=== PATIENT | female | born 1970 ===

== ENCOUNTER 2019-03-05 20:36 | Observation (INO) | payer OTHER ==
--- NOTE | 2019-03-05 20:47 | Emergency Department Report ---
ED Chest Pain HPI - General Chief Complaint: Chest Pain Stated Complaint: CHEST PAIN Time Seen by Provider: 03/05/19 20:36 Source: patient, EMS Mode of arrival: Stretcher Limitations: No Limitations - History of Present Illness Initial Comments: She is a 48-year-old female Emergency room for chest pain. Patient brought in by EMS. Patient states one hour ago she developed chest pain in the center chest radiating to her left shoulder. Patient states that the chest pain was a 10 out of 10 but is now a 0 out of 10 since being given aspirin and nitro glycerin by EMS. Patient states the chest pain was a stabbing pain. Patient states one month ago she had an N STEMI where she was seen at [place]. MD Complaint: chest pain -: Sudden Onset: during rest Pain Location: substernal, left chest Pain Radiation: LUE Severity: severe Severity scale (0 -10): 10 Consistency: now resolved Improves With: nitroglycerin Worsens With: exertion re: denies: nausea, vomting, diaphoresis, dyspnea, sense of impending doom Other Symptoms: denies: cough, fever, syncope, rash, acid taste in mouth, leg swelling, palpitations, burping Treatments Prior to Arrival: aspirin, nitroglycerin Aspirin use within the Past 7 Days: (1) Yes - Related Data On Oral Contraceptives: No Home Medications Medication Instructions Recorded Confirmed Last Taken Aspirin [Adult Aspirin] 81 mg PO DAILY 03/05/19 03/05/19 Unknown AtorvaSTATin [Lipitor] 20 mg PO DAILY 03/05/19 03/05/19 Unknown Carvedilol 25 mg PO BID 03/05/19 03/05/19 Unknown Prozac 20 mg PO DAILY 03/05/19 03/05/19 Unknown Valsartan [Diovan] 320 mg PO DAILY 03/05/19 03/05/19 Unknown hydroCHLOROthiazide [HCTZ] 25 mg PO DAILY 03/05/19 03/05/19 Unknown Allergies Allergy/AdvReac Type Severity Reaction Status Date / Time amlodipine [From Norvasc] AdvReac Headache Verified 03/05/19 20:43 Heart Score - HEART Score History: Highly suspicious EKG: Significant ST-depression Age: 45-65 Risk factors: > 3 risk factors or hx of atherosclerotic disease Troponin: < normal limit HEART Score: 7 ED Review of Systems ROS: Stated complaint: CHEST PAIN Other details as noted in HPI Constitutional: denies: chills, fever Eyes: denies: eye pain, eye discharge, vision change ENT: denies: ear pain, throat pain Respiratory: denies: cough, shortness of breath, wheezing Cardiovascular: chest pain. denies: palpitations Endocrine: no symptoms reported Gastrointestinal: denies: abdominal pain, nausea, diarrhea Genitourinary: denies: urgency, dysuria, discharge Musculoskeletal: denies: back pain, joint swelling, arthralgia Skin: denies: rash, lesions Neurological: denies: headache, weakness, paresthesias Psychiatric: denies: anxiety, depression Hematological/Lymphatic: denies: easy bleeding, easy bruising ED Past Medical Hx - Past Medical History Previous Medical History?: Yes Hx Hypertension: Yes Hx Heart Attack/AMI: Yes - Surgical History Past Surgical History?: No - Family History Family history: no significant - Social History Smoking Status: Never Smoker Substance Use Type: None - Medications Home Medications: Home Medications Medication Instructions Recorded Confirmed Last Taken Type Aspirin [Adult Aspirin] 81 mg PO DAILY 03/05/19 03/05/19 Unknown History AtorvaSTATin [Lipitor] 20 mg PO DAILY 03/05/19 03/05/19 Unknown History Carvedilol 25 mg PO BID 03/05/19 03/05/19 Unknown History Prozac 20 mg PO DAILY 03/05/19 03/05/19 Unknown History Valsartan [Diovan] 320 mg PO DAILY 03/05/19 03/05/19 Unknown History hydroCHLOROthiazide [HCTZ] 25 mg PO DAILY 03/05/19 03/05/19 Unknown History ED Physical Exam - General Limitations: No Limitations General appearance: alert, in no apparent distress - Head Head exam: Present: atraumatic, normocephalic - Eye Eye exam: Present: normal appearance - ENT ENT exam: Present: mucous membranes moist - Neck Neck exam: Present: normal inspection - Respiratory Respiratory exam: Present: normal lung sounds bilaterally. Absent: respiratory distress - Cardiovascular Cardiovascular Exam: Present: regular rate, normal rhythm. Absent: systolic murmur, diastolic murmur, rubs, gallop - GI/Abdominal GI/Abdominal exam: Present: soft, normal bowel sounds. Absent: distended, tenderness - Rectal Rectal exam: Present: deferred - Extremities Exam Extremities exam: Present: normal inspection - Back Exam Back exam: Present: normal inspection - Neurological Exam Neurological exam: Present: alert, oriented X3 - Psychiatric Psychiatric exam: Present: normal affect, normal mood - Skin Skin exam: Present: warm, dry, intact, normal color. Absent: rash ED Course Vital Signs 03/05/19 03/05/19 03/05/19 20:44 20:46 20:50 Temperature 98.9 F Pulse Rate 87 85 80 Respiratory 16 17 Rate Blood Pressure 159/97 Blood Pressure 159/97 [Right] O2 Sat by Pulse 99 98 Oximetry 03/05/19 03/05/19 03/05/19 20:51 21:00 21:15 Temperature Pulse Rate 76 76 Respiratory 19 12 16 Rate Blood Pressure 140/90 153/95 Blood Pressure [Right] O2 Sat by Pulse 98 98 100 Oximetry 03/05/19 03/05/19 03/05/19 21:27 21:30 21:45 Temperature Pulse Rate 77 83 74 Respiratory 16 24 14 Rate Blood Pressure 145/80 137/80 Blood Pressure 146/89 [Right] O2 Sat by Pulse 100 98 100 Oximetry 03/05/19 03/05/19 03/05/19 22:01 22:15 22:30 Temperature Pulse Rate 76 75 71 Respiratory 16 12 13 Rate Blood Pressure 150/75 142/80 150/82 Blood Pressure [Right] O2 Sat by Pulse 97 100 99 Oximetry 03/05/19 03/05/19 03/05/19 22:41 22:51 23:01 Temperature Pulse Rate 77 68 71 Respiratory 12 14 17 Rate Blood Pressure 158/90 150/85 157/88 Blood Pressure [Right] O2 Sat by Pulse 98 97 98 Oximetry 03/05/19 03/05/19 03/05/19 23:11 23:16 23:21 Temperature Pulse Rate 72 77 73 Respiratory 18 18 18 Rate Blood Pressure 158/76 167/84 Blood Pressure 158/76 [Right] O2 Sat by Pulse 97 98 97 Oximetry 03/05/19 03/05/19 03/05/19 23:31 23:41 23:51 Temperature Pulse Rate 71 72 72 Respiratory 19 15 32 H Rate Blood Pressure 165/92 164/88 170/93 Blood Pressure [Right] O2 Sat by Pulse 97 97 96 Oximetry 03/06/19 00:16 Temperature 98.0 F Pulse Rate 71 Respiratory 18 Rate Blood Pressure 153/94 Blood Pressure [Right] O2 Sat by Pulse 95 Oximetry - Reevaluation(s) Reevaluation #1: Patient is still pain free. I discussed all results with patient. I discussed plan of care with patient. Patient agrees with plan of care. Patient will be admitted to the hospitalist service. 03/05/19 21:49 - Consultations Consultation #1: Dr. Hitchcock, interventional cardiology consultation for abnormal EKG. Dr. Hitchcock states this is not a STEMI and recommends admission after initial cardiac workup with troponin done 03/05/19 20:26 Consultation #2: Hospitalist consult for admission. Hospitalist admit patient. 03/05/19 21:52 JAS score - Jas Score Age > 65: (0) No Aspirin use within the Past 7 Days: (1) Yes 3 or more CAD Risk Factors: (1) Yes 2 or more Angina events in past 24 hrs: (0) No Known CAD with more than 50% Stenosis: (0) No Elevated Cardiac Markers: (0) No ST Deviation Greater than 0.5mm: (0) No JAS Score: 2 ED Medical Decision Making - Lab Data Result diagrams: 03/05/19 20:51 03/05/19 20:51 - EKG Data -: EKG Interpreted by [facility] EKG shows normal: sinus rhythm, axis, intervals, QRS complexes Rate: normal - EKG Data Interpretation: LVH, other (abnormal EKG with ST depression.) - Radiology Data Radiology results: report reviewed CHEST 1 VIEW 03/05/2019 8:50 PM INDICATION / CLINICAL INFORMATION: Chest Pain. COMPARISON: None available. FINDINGS: SUPPORT DEVICES: None. HEART / MEDIASTINUM: No significant abnormality. LUNGS / PLEURA: No significant pulmonary or pleural abnormality. No pneumothorax. ADDITIONAL FINDINGS: No significant additional findings. IMPRESSION: No significant abnormality of the chest. - Medical Decision Making Patient is a 48-year-old female that just marginal complaints of chest pain. Patient was given aspirin and nitroglycerin on her chest. Relief prior to arrival. Patient recently had an STEMI 1 month ago. Patient's EKG is abnormal. Patient's chest x-ray within normal limits. Patient's labs unremarkable. Patient admitted to the hospitalist service. Prior to arrival, cardiology was consults it and stated this was not a STEMI but recommends admission for ACS. - Differential Diagnosis ACS. Chest pain. Hypertension. Critical Care Time: Yes Critical care attestation.: If time is entered above; I have spent that time in minutes in the direct care of this critically ill patient, excluding procedure time. Critical Care Time: 35 minutes ED Disposition Clinical Impression: Chest pain Qualifiers: Chest pain type: unspecified Qualified Code(s): R07.9 - Chest pain, unspecified Hypertension Qualifiers: Hypertension type: essential hypertension Qualified Code(s): I10 - Essential (primary) hypertension UTI (urinary tract infection) Qualifiers: Urinary tract infection type: acute cystitis Hematuria presence: with hematuria Qualified Code(s): N30.01 - Acute cystitis with hematuria Disposition: OP ADMIT IP TO THIS HOSP Is pt being admited?: Yes Does the pt Need Aspirin: No Condition: Critical Time of Disposition: 21:52
[2019-03-05 21:03] LABS: Basophils % (Auto) 0.6 % (0.0-1.8); Eosinophils # (Auto) 0.2 K/mm3 (0.0-0.4); Eosinophils % (Auto) 2.1 % (0.0-4.3); Hematocrit 36.4 % (30.3-42.9); Hemoglobin 12.3 gm/dl (10.1-14.3); Lymphocytes # (Auto) 2.3 K/mm3 (1.2-5.4); Lymphocytes % (Auto) 29.7 % (13.4-35.0); Mean Corpuscular HGB Conc 34 % (30-34); Mean Corpuscular Volume 94 fl (79-97); Monocytes # (Auto) 0.7 K/mm3 (0.0-0.8); Monocytes % (Auto) 8.6 % (0.0-7.3); Platelet Count 276 K/mm3 (140-440); Red Blood Count 3.88 M/mm3 (3.65-5.03); Red Cell Distribution Width 14.4 % (13.2-15.2)
--- NOTE | 2019-03-05 21:16 | XRay Report ---
CHEST 1 VIEW 03/05/2019 8:50 PM INDICATION / CLINICAL INFORMATION: Chest Pain. COMPARISON: None available. FINDINGS: SUPPORT DEVICES: None. HEART / MEDIASTINUM: No significant abnormality. LUNGS / PLEURA: No significant pulmonary or pleural abnormality. No pneumothorax. ADDITIONAL FINDINGS: No significant additional findings. IMPRESSION: No significant abnormality of the chest. Signer Name: Emmett Long MD Signed: 03/05/2019 9:12 PM Workstation Name: [id number]
[2019-03-05 21:30] LABS: Alanine Aminotransferase 12 units/L (7-56); Albumin 3.9 g/dL (3.9-5); BUN/Creatinine Ratio 19; Blood Urea Nitrogen 13 mg/dL (7-17); Calcium 9.2 mg/dL (8.4-10.2); Hemolysis Index 9
[2019-03-05 21:53] LABS: Amphetamine Screen,Urine PRESUMPTIVE NEGATIVE; Benzodiazepines Screen,Urine PRESUMPTIVE NEGATIVE; Cocaine Screen,Urine PRESUMPTIVE NEGATIVE; Methadone Screen,Urine PRESUMPTIVE NEGATIVE; Opiate Screen,Urine PRESUMPTIVE NEGATIVE
[2019-03-05 22:02] LABS: Bacteria,Urine 2+ /HPF (Negative); Bilirubin,Urine NEG (Negative); Blood,Urine SM (Negative); Color,Urine Yellow (Yellow); Hyaline Casts,Urine 11 /LPF; Mucus,Urine FEW /HPF; Urobilinogen,Urine < 2.0 mg/dL (<2.0)
--- NOTE | 2019-03-05 22:43 | History and Physical Report ---
History of Present Illness Date of examination: 03/05/19 History of present illness: 48 year old woman with a history of hypertension comes emergency room complains of chest pain located in the epigastric area that has been intermittent over the last 1 week. She describes the pain as squeezing, every 10 minutes, radiating to the left arm and also to the back, intensity 5/10. Admits to shortness of breath, diaphoresis, nausea. She was at [facility] one month ago for chest pain. I have requested her records and review them. She had a cardiac cath which was negative eview Of Systems: Constitutional: no weight loss, fever, chills Ears, eyes, nose, mouth and throat: no nasal congestion, no nasal discharge, no sinus pressure, blurry vision, diplopia Neck: No neck pain or rigidity. Cardiovascular: No palpitation Respiratory: No cough Gastrointestinal: No hematochezia, abdominal pain Genitourinary : no dysuria, frequency , hematuria Musculoskeletal: no muscle ache , joint pain Integumentary: no rash, no pruritis Neurological: no parathesias, focal weakness Endocrine: no cold or heat intolerance, no polyuria or polydipsia Hematologic/Lymphatic: no easy bruising, no easy bleeding, no gland swelling Allergic/Immunologic: no urticaria, no angioedema. PAST MEDICAL HISTORY: hypertension PAST SURGICAL HISTORY: Hysterectomy, tubal ligation, knee, tonsils FAMILY HISTORY:hypertension, diabetes SOCIAL HISTORY: Denies tobacco, drugs, alcohol Medications and Allergies Allergies Allergy/AdvReac Type Severity Reaction Status Date / Time [facility] AdvReac Headache Verified 03/05/19 20:43 Home Medications Medication Instructions Recorded Confirmed Last Taken Type Aspirin [Adult Aspirin] 81 mg PO DAILY 03/05/19 03/05/19 Unknown History AtorvaSTATin [Lipitor] 20 mg PO DAILY 03/05/19 03/05/19 Unknown History Carvedilol 25 mg PO BID 03/05/19 03/05/19 Unknown History Prozac 20 mg PO DAILY 03/05/19 03/05/19 Unknown History Valsartan [Diovan] 320 mg PO DAILY 03/05/19 03/05/19 Unknown History hydroCHLOROthiazide [HCTZ] 25 mg PO DAILY 03/05/19 03/05/19 Unknown History Exam - Physical Exam Narrative exam: General Apperance: The patient sitting in bed no acute distress HEENT: Normocephalic, atraumatic. Pupils equally round and reactive to light, extraocular movement intact, and no sclericterus or JVD or thyromegaly or nodule. Neck supple, no carotid bruit, mucous membranes moist, no exudate or erythema Heart: S1-S2, regular is rhythm Lungs: Clear to auscultation bilaterally, breathing comfortable Abdomen: Positive bowel sounds, soft, nontender, nondistended, no organomegaly Extremities: No edema cyanosis clubbing Skin: no rash, nodule, warm and dry Neuro:CN 2 -12 intact, motor/sensory intact, speech is fluent - Constitutional Vitals: Temp Pulse Resp BP Pulse Ox 98.9 F 75 12 142/80 100 03/05/19 20:44 03/05/19 22:15 03/05/19 22:15 03/05/19 22:15 03/05/19 22:15 Results - Labs CBC & Chem 7: 03/05/19 20:51 03/05/19 20:51 Labs: Abnormal lab results 03/05/19 03/05/19 03/05/19 Range/Units 20:51 20:51 21:25 [place] % (Auto) 8.6 H (0.0-7.3) % Glucose 125 H (65-100) mg/dL Urine WBC (Auto) 45.0 H (0.0-6.0) /HPF - Imaging and Cardiology EKG: image reviewed Chest x-ray: image reviewed Assessment and Plan Assessment Chest pain TIA Hypertension Obesity Plan Admit to medicine Cardiac enzymes, consult cardiology Start aspirin, IV morphine, Rocephin, DVT prophylaxis
[2019-03-05 22:58] LABS: Cannabinoid Screen,Urine PRESUMPTIVE POSITIVE
[2019-03-05] MEDS ORDERED: SODIUM CHLORIDE FLUSH SYRINGE 10 ML IV PRN (23:22)
[2019-03-05] MEDS ORDERED: ZOFRAN IV PRN (23:22)
[2019-03-05] MEDS ORDERED: TYLENOL PO PRN (23:22)
[2019-03-05] MEDS ORDERED: MORPHINE IV PRN (23:22)
[2019-03-06 06:12] LABS: Basophils # (Auto) 0.1 K/mm3 (0.0-0.1); Basophils % (Auto) 1.1 % (0.0-1.8); Eosinophils # (Auto) 0.1 K/mm3 (0.0-0.4); Eosinophils % (Auto) 1.6 % (0.0-4.3); Hematocrit 37.1 % (30.3-42.9); Hemoglobin 12.6 gm/dl (10.1-14.3); Lymphocytes % (Auto) 23.7 % (13.4-35.0); Mean Corpuscular HGB Conc 34 % (30-34); Mean Corpuscular Volume 93 fl (79-97); Monocytes # (Auto) 0.7 K/mm3 (0.0-0.8); Monocytes % (Auto) 7.8 % (0.0-7.3); Platelet Count 279 K/mm3 (140-440); Red Cell Distribution Width 14.5 % (13.2-15.2)
[2019-03-06 06:25] LABS: BUN/Creatinine Ratio 17; Blood Urea Nitrogen 10 mg/dL (7-17); Calcium 8.9 mg/dL (8.4-10.2); Hemolysis Index 3
[2019-03-06 08:40] VITALS: BP 144/100
[2019-03-06] MEDS ORDERED: LOVENOX SUB-Q SCH (10:00)
[2019-03-06] MEDS ORDERED: ROCEPHIN/NS 1 GM/50 ML 1 GM/50 ML BAG IV SCH (10:00)
[2019-03-06] MEDS ORDERED: SODIUM CHLORIDE FLUSH SYRINGE 10 ML IV SCH (10:00)
[2019-03-06] MEDS ORDERED: BABY ASPIRIN PO SCH (10:00)
--- NOTE | 2019-03-06 10:19 | Consultation ---
History of Present Illness Consult date: 03/06/19 Consult reason: chest pain History of present illness: Impression Acute chest pain now resolved, atypical for unstable angina She had cardiac cath last month at [facility] which was normal HTN CXR negative Trop negative Plan No further cardiac w/u advised. Suggest GI evaluation followed by exercise and weight loss program Compression stocking for lower ext edema. F/u office after discharge for HTN management. Adjust meds as outpt. Past History Past Medical History: hypertension, hyperlipidemia Past Surgical History: No surgical history Social history: no significant social history Medications and Allergies Allergies Allergy/AdvReac Type Severity Reaction Status Date / Time [facility] AdvReac Headache Verified 03/05/19 20:43 Home Medications Medication Instructions Recorded Confirmed Last Taken Type Aspirin [Adult Aspirin] 81 mg PO DAILY 03/05/19 03/05/19 Unknown History AtorvaSTATin [Lipitor] 20 mg PO DAILY 03/05/19 03/05/19 Unknown History Carvedilol 25 mg PO BID 03/05/19 03/05/19 Unknown History Prozac 20 mg PO DAILY 03/05/19 03/05/19 Unknown History Valsartan [Diovan] 320 mg PO DAILY 03/05/19 03/05/19 Unknown History hydroCHLOROthiazide [HCTZ] 25 mg PO DAILY 03/05/19 03/05/19 Unknown History Active Meds: Active Medications Acetaminophen (Tylenol) 650 mg PO Q4H PRN PRN Reason: Pain MILD(1-3)/Fever >100.5/YATES Aspirin (Baby Aspirin) 81 mg PO QDAY [facility] Last Admin: 03/06/19 09:58 Dose: 81 mg Documented by: Enoxaparin Sodium (Lovenox) 40 mg SUB-Q QDAY [facility] Last Admin: 03/06/19 09:58 Dose: 40 mg Documented by: Ceftriaxone Sodium (Rocephin/Ns 1 Gm/50 Ml) 1 gm in 50 mls @ 100 mls/hr IV Q24HR [facility]; Protocol Last Admin: 03/06/19 10:09 Dose: 100 mls/hr Documented by: Morphine Sulfate (Morphine) 2 mg IV Q4H PRN PRN Reason: Pain, Moderate (4-6) Ondansetron HCl (Zofran) 4 mg IV Q8H PRN PRN Reason: Nausea And Vomiting Sodium Chloride (Sodium Chloride Flush Syringe 10 Ml) 10 ml IV BID [facility] Last Admin: 03/06/19 10:02 Dose: 10 ml Documented by: Sodium Chloride (Sodium Chloride Flush Syringe 10 Ml) 10 ml IV PRN PRN PRN Reason: LINE FLUSH Review of Systems All systems: negative (stated in impression) Physical Examination Vital Signs Temp Pulse Resp BP Pulse Ox 98.9 F 87 16 159/97 99 03/05/19 20:44 03/05/19 20:44 03/05/19 20:44 03/05/19 20:44 03/05/19 20:44 General appearance: no acute distress HEENT: Positive: PERRL, EOMI Neck: Positive: neck supple. Negative: JVD/HJR Cardiac: Positive: Reg Rate and Rhythm, S1/S2. Negative: Gallop Lungs: Positive: Normal Exam Neuro: Positive: Grossly Intact Abdomen: Positive: Unremarkable Extremities: Present: edema (trace edema) Results 03/06/19 05:32 03/06/19 05:32 Cardiac Enzymes 03/05/19 Range/Units 20:51 AST 18 (5-40) units/L CBC 03/05/19 03/06/19 Range/Units 20:51 05:32 WBC 7.6 8.3 (4.5-11.0) K/mm3 RBC 3.88 4.00 (3.65-5.03) M/mm3 Hgb 12.3 12.6 (10.1-14.3) gm/dl Hct 36.4 37.1 (30.3-42.9) % Plt Count 276 279 (140-440) K/mm3 Lymph # 2.3 2.0 (1.2-5.4) K/mm3 [place] # 0.7 0.7 (0.0-0.8) K/mm3 Eos # 0.2 0.1 (0.0-0.4) K/mm3 Baso # 0.0 0.1 (0.0-0.1) K/mm3 Comprehensive Metabolic Panel 03/05/19 03/06/19 Range/Units 20:51 05:32 Sodium 138 140 (137-145) mmol/L Potassium 3.9 4.0 (3.6-5.0) mmol/L Chloride 102.3 103.3 (98-107) mmol/L Carbon Dioxide 23 27 (22-30) mmol/L BUN 13 10 (7-17) mg/dL Creatinine 0.7 0.6 L (0.7-1.2) mg/dL Glucose 125 H 121 H (65-100) mg/dL Calcium 9.2 8.9 (8.4-10.2) mg/dL AST 18 (5-40) units/L ALT 12 (7-56) units/L Alkaline Phosphatase 65 (35-129) units/L Total Protein 7.0 (6.3-8.2) g/dL Albumin 3.9 (3.9-5) g/dL
--- NOTE | 2019-03-06 10:32 | Discharge Summary ---
Providers - Providers Date of Admission: 03/05/19 22:43 Date of discharge: 03/06/19 Attending physician: NICKY LOVELL 03/05/19 23:22 Consult to Physician [CONS] Routine Comment: Consulting Provider: MATIAS CARLSON Physician Instructions: Reason For Exam: cp [facility] Reason for admission: cp Condition: Critical Hospital course: 48-year-old female with history of hypertension presents to the emergency room with complaints of chest pain, epigastric pain, UTI and elevated blood pressure. Patient was seen by cardiology in consultation and reports that the pain is atypical for unstable angina. Patient with cardiac catheterization last month at [facility] which was normal. Cardiology recommends no further cardiac workup. Etiology of chest pain is likely GERD. Patient can have a GI evaluation as an outpatient. GI physician referral name will be given to the patient. Patient did have some accelerated hypertension that resolved with administration of home antihypertensive medications. The patient will be given a prescription for Protonix daily. Also, with regards UTI patient will be given antibiotic 5 days. Dedicated discharge time 32 minutes. Disposition: - TO HOME OR SELFCARE Time spent for discharge: 32 - Discharge Diagnoses (1) Chest pain Status: Acute Qualifiers: Chest pain type: unspecified Qualified Code(s): R07.9 - Chest pain, unspecified (2) Hypertension Status: Acute Qualifiers: Hypertension type: essential hypertension Qualified Code(s): I10 - Essential (primary) hypertension (3) UTI (urinary tract infection) Status: Acute Qualifiers: Urinary tract infection type: acute cystitis Hematuria presence: with hematuria Qualified Code(s): N30.01 - Acute cystitis with hematuria Core Measure Documentation - Palliative Care Palliative Care/ Comfort Measures: Not Applicable - Core Measures Any of the following diagnoses?: none Exam - Constitutional Vitals: Temp Pulse Resp BP Pulse Ox 98.9 F 80 18 144/100 99 03/06/19 07:36 03/06/19 09:27 03/06/19 07:36 03/06/19 07:36 03/06/19 07:36 General appearance: Present: no acute distress, well-nourished - EENT Eyes: Present: PERRL ENT: hearing intact, clear oral mucosa - Neck Neck: Present: supple, normal ROM - Respiratory Respiratory effort: normal Respiratory: bilateral: CTA - Cardiovascular Heart Sounds: Present: S1 & S2. Absent: rub, click - Extremities Extremities: pulses symmetrical, No edema Peripheral Pulses: within normal limits - Abdominal General gastrointestinal: Present: soft, non-tender, non-distended, normal bowel sounds Female genitourinary: Present: normal - Integumentary Integumentary: Present: clear, warm, dry - Musculoskeletal Musculoskeletal: gait normal, strength equal bilaterally - Psychiatric Psychiatric: appropriate mood/affect, intact judgment & insight - Neurologic Neurologic: CNII-XII intact, moves all extremities Plan Activity: advance as tolerated Weight Bearing Status: Weight Bear as Tolerated Diet: low fat, low cholesterol, low salt Prescriptions: Aspirin [Adult Aspirin] 81 mg PO DAILY #30 tablet. Sulfamethoxazole/Trimethoprim [Bactrim DS TAB] 1 each PO BID #10 tablet Carvedilol 25 mg PO BID #60 Valsartan [Diovan] 320 mg PO DAILY #30 tablet hydroCHLOROthiazide [HCTZ] 25 mg PO DAILY #30 tablet levoFLOXacin [Levaquin TAB] 500 mg PO QDAY #5 tablet AtorvaSTATin [Lipitor] 20 mg PO DAILY #30 tablet Pantoprazole [Protonix] 40 mg PO QDAY #30 tablet Prozac 20 mg PO DAILY #30
== END 2019-03-06 12:50 | disposition home or self-care (01) ==
LOC: ED 20:36 → 4A 22:43
PROVIDERS: ADMIT Internal Medicine; ATTEND Hospitalist
DX: R07.89 Other chest pain (principal); I10 Essential (primary) hypertension; G45.9 Transient cerebral ischemic attack, unspecified; E66.9 Obesity, unspecified
CPT/HCPCS: 36415; 71045; 80048; 80053; 80307; 81001; 84484; 84703; 85025; 87086; 93005; 93010; 96365; 96372; 99291; G0378; J0696; J1650